=== PATIENT | female | born 1965 | race Caucasian/White ===

== ENCOUNTER 2017-02-13 21:36 | Emergency (ER) | payer MEDICAID ==
[~2017-02-13] VITALS: Ht 162.6 cm; Wt 70.8 kg
[2017-02-13 22:35] VITALS: BP 117/74; Ht 162.6 cm; Wt 70.8 kg
== END 2017-02-14 03:08 | disposition left against medical advice (07) ==
LOC: ED 21:36
DX: Z53.21 Procedure and treatment not carried out due to patient leaving prior to being seen by health care provider (principal)